=== PATIENT | male | born 1960 | race Two or more races ===

== ENCOUNTER 2021-04-18 19:35 | Emergency (ER) | payer SELFPAY ==
[~2021-04-18] VITALS: Ht 170.2 cm; Wt 65.8 kg
== END 2021-04-18 19:58 | disposition left against medical advice (07) ==
LOC: ER 19:35
DX: F10.920 Alcohol use, unspecified with intoxication, uncomplicated (principal); V49.9XXA Car occupant (driver) (passenger) injured in unspecified traffic accident, initial encounter; Y93.89 Activity, other specified; Y92.89 Other specified places as the place of occurrence of the external cause; Y99.8 Other external cause status

== ENCOUNTER 2023-05-28 04:36 | Inpatient (IN) | payer MEDICARE, OTHER ==
[~2023-05-28] VITALS: Ht 170.2 cm; Wt 61.0 kg
[2023-05-28] MEDS ORDERED: LISINOPRIL 10 MG TAB PO ONE (05:00)
[2023-05-28 06:25] LABS: Basophils # (auto) 0.1 10 ^3/uL (0-0.2); Eosinophils # (auto) 0.3 10 ^3/uL (0-0.8); Eosinophils % (auto) 3.2 % (0.0-7.0); Hematocrit 45.5 % (41.0-53.0); Hemoglobin 15.3 g/dL (13.5-17.5); Lymphocytes # (auto) 1.7 10 ^3/uL (0.4-5.4); Lymphocytes % (auto) 20.5 % (10.0-50.0); Mean Corpuscular Hemoglobin 32.2 pg (28.0-32.0); Mean Corpuscular Hgb Conc. 33.7 g/dL (32.0-36.0); Mean Corpuscular Volume 95.5 fL (80.0-100.0); Neutrophils # (auto) 5.3 10 ^3/uL (1.6-8.6); Neutrophils % (auto) 63.3 % (37.0-80.0); Nucleated Red Blood Cells % 0.1 %; Red Blood Cells 4.76 10^6/uL (4.5-5.90); Red Cell Distribution Width 14.7 % (11.8-14.3); White Blood Cell 8.4 10^3/uL (4.4-10.8)
[2023-05-28 06:47] LABS: Urine Bacteria NONE SEEN /hpf (None Seen); Urine Blood TRACE /uL (Negative); Urine Mucus FEW (None Seen); Urine Specific Gravity 1.022 (1.001-1.035); Urine Sperm PRESENT /hpf (None Seen); Urine WBC 3 /hpf (0 - 3)
[2023-05-28] MEDS ORDERED: DexAMETHasone SOD PHOS 10MG/1ML VIAL INJ IV ONE (07:00)
[2023-05-28] MEDS ORDERED: ALBUTEROL SULF 2.5 MG/0.5ML(0.5%) NEB SOLN NEB ONE (07:00)
[2023-05-28] MEDS ORDERED: ASPirin 325 MG TAB PO ONE (07:00)
[2023-05-28] MEDS ORDERED: IPRATROPIUM BROM 0.5 MG/2.5ML INH SOL NEB ONE (07:00)
[2023-05-28 07:10] LABS: Albumin 3.1 g/dL (3.4-5.0); Calcium 8.6 mg/dL (8.5-10.1); Potassium 3.7 mmol/L (3.5-5.1)
[2023-05-28 07:15] LABS: BUN/Creatinine Ratio 17.3 (10.0-20.0); Bilirubin, Total 0.5 mg/dL (0.2-1.0); Total Protein 6.6 g/dL (6.4-8.2)
[2023-05-28] MEDS ORDERED: LISI20TA56 PO (15:27)
[2023-05-28 17:15] VITALS: BP 151/106
[2023-05-28] MEDS: ALBUTEROL SULF 2.5 MG/0.5ML(0.5%) NEB SOLN NEB SCH ×2 (18:40→22:31)
[2023-05-28] MEDS: IPRATROPIUM BROM 0.5 MG/2.5ML INH SOL NEB SCH ×2 (18:40→22:31)
[2023-05-28] MEDS: METOPROLOL TARTRATE 50 MG TAB PO SCH (21:34)
[2023-05-28] MEDS: ATORVASTATIN 20 MG TAB PO SCH (21:34)
[2023-05-28] MEDS: MELATONIN 5 MG TAB PO SCH (21:36)
[2023-05-28] MEDS ORDERED: MELATONIN 5 MG TAB PO ONE (23:45)
[2023-05-29] MEDS: IPRATROPIUM BROM 0.5 MG/2.5ML INH SOL NEB SCH ×5 (00:15→22:44)
[2023-05-29] MEDS: ALBUTEROL SULF 2.5 MG/0.5ML(0.5%) NEB SOLN NEB SCH ×5 (00:15→22:45)
[2023-05-29] MEDS ORDERED: LORazepam 2MG/ML-1ML VIAL IV ONE (05:15)
[2023-05-29 06:36] LABS: Basophils # (auto) 0 10 ^3/uL (0-0.2); Basophils % (auto) 0.3 % (0.0-2.0); Eosinophils # (auto) 0 10 ^3/uL (0-0.8); Eosinophils % (auto) 0.2 % (0.0-7.0); Hematocrit 44.3 % (41.0-53.0); Hemoglobin 14.7 g/dL (13.5-17.5); Lymphocytes # (auto) 1.2 10 ^3/uL (0.4-5.4); Lymphocytes % (auto) 11.3 % (10.0-50.0); Mean Corpuscular Hemoglobin 31.7 pg (28.0-32.0); Mean Corpuscular Hgb Conc. 33.2 g/dL (32.0-36.0); Mean Corpuscular Volume 95.4 fL (80.0-100.0); Monocytes # (auto) 1.2 10 ^3/uL (0-1.3); Monocytes % (auto) 11.8 % (0.0-12.0); Neutrophils % (auto) 76.4 % (37.0-80.0); Nucleated Red Blood Cells % 0.1 %; Red Blood Cells 4.65 10^6/uL (4.5-5.90); Red Cell Distribution Width 14.8 % (11.8-14.3); White Blood Cell 10.4 10^3/uL (4.4-10.8)
[2023-05-29 06:39] LABS: Albumin 2.9 g/dL (3.4-5.0); Calcium 8.8 mg/dL (8.5-10.1); Potassium 4.1 mmol/L (3.5-5.1)
[2023-05-29 06:46] LABS: BUN/Creatinine Ratio 23.5 (10.0-20.0); Bilirubin, Total 0.6 mg/dL (0.2-1.0); Total Protein 6.3 g/dL (6.4-8.2)
[2023-05-29] MEDS: METOPROLOL TARTRATE 50 MG TAB PO SCH ×2 (11:00→21:31)
[2023-05-29] MEDS: ENOXAPARIN SOD 40 MG/0.4 ML SYRINGE SC SCH (11:01)
[2023-05-29] MEDS: FUROSEMIDE 20 MG/2 ML VIAL IV SCH (11:01)
[2023-05-29] MEDS: predniSONE 20 MG TAB PO SCH (11:01)
[2023-05-29] MEDS: NICOTINE 21MG/24 HR TOPICAL PATCH TD SCH (11:02)
[2023-05-29 12:55] VITALS: BP 119/94
[2023-05-29 14:47] VITALS: BP 119/94
[2023-05-29 17:00] VITALS: BP 124/97
[2023-05-29] MEDS: ATORVASTATIN 20 MG TAB PO SCH (21:31)
[2023-05-29] MEDS: MELATONIN 5 MG TAB PO SCH (21:31)
[2023-05-29 22:00] VITALS: BP 118/88
[2023-05-30 05:00] VITALS: BP 114/83
[2023-05-30] MEDS: ALBUTEROL SULF 2.5 MG/0.5ML(0.5%) NEB SOLN NEB SCH ×4 (05:53→23:10)
[2023-05-30] MEDS: IPRATROPIUM BROM 0.5 MG/2.5ML INH SOL NEB SCH ×4 (05:54→23:10)
[2023-05-30 08:42] VITALS: BP 113/85
[2023-05-30] MEDS: levoFLOXacin 500MG 100 ML IV SCH (08:52)
[2023-05-30] MEDS: ASPirin 81 mg TAB PO SCH (09:03)
[2023-05-30] MEDS: predniSONE 20 MG TAB PO SCH (09:03)
[2023-05-30] MEDS: METOPROLOL TARTRATE 50 MG TAB PO SCH ×2 (09:04→20:36)
[2023-05-30] MEDS: ENOXAPARIN SOD 40 MG/0.4 ML SYRINGE SC SCH (09:04)
[2023-05-30] MEDS: NICOTINE 21MG/24 HR TOPICAL PATCH TD SCH (09:05)
[2023-05-30] MEDS: FUROSEMIDE 20 MG/2 ML VIAL IV SCH (09:22)
[2023-05-30] MEDS ORDERED: metOLazone 5 MG TAB PO ONE (12:45)
[2023-05-30 12:58] VITALS: BP 115/89
[2023-05-30 13:43] LABS: INR 1.26 (0.9-1.15)
[2023-05-30] MEDS: LORazepam 0.5 MG TAB PO PRN ×2 (15:02→23:25)
[2023-05-30 17:00] VITALS: BP 108/65
[2023-05-30] MEDS: MELATONIN 5 MG TAB PO SCH (20:35)
[2023-05-30] MEDS: ATORVASTATIN 20 MG TAB PO SCH (20:35)
[2023-05-30 22:00] VITALS: BP 111/73
[2023-05-30] MEDS ORDERED: traMADol HCL 50 MG TAB PO PRN (22:15)
[2023-05-31] VITALS (10 sets, daily range): BP systolic 103–118; BP diastolic 68–88
[2023-05-31 05:53] LABS: Albumin 3.1 g/dL (3.4-5.0); BUN/Creatinine Ratio 37.7 (10.0-20.0); Calcium 8.5 mg/dL (8.5-10.1); Phosphorus 4.3 mg/dL (2.5-4.90); Potassium 3.9 mmol/L (3.5-5.1)
[2023-05-31] MEDS: IPRATROPIUM BROM 0.5 MG/2.5ML INH SOL NEB SCH ×3 (07:06→19:25)
[2023-05-31] MEDS: ALBUTEROL SULF 2.5 MG/0.5ML(0.5%) NEB SOLN NEB SCH ×3 (07:06→19:25)
[2023-05-31] MEDS ORDERED: fentaNYL CITRATE 100 MCG/2 ML VL ONE (10:50)
[2023-05-31] MEDS ORDERED: LIDOCAINE 2%HCL (LOCAL ANESTH.) INJ 20ML MDV ONE (10:50)
[2023-05-31] MEDS ORDERED: VERAPAMIL 2.5MG/ML INJ 2ML VIAL IV ONE (10:50)
[2023-05-31] MEDS ORDERED: MIDAZOLAM HCL 2MG/2ML 2ml VIAL (1mg/ml) ONE (10:50)
[2023-05-31] MEDS ORDERED: ANGIOMAX 250 MG VIAL IV ONE (10:50)
[2023-05-31] MEDS ORDERED: IODIXANOL 320MG/ML 100ML BTL IV ONE (10:51)
[2023-05-31] MEDS ORDERED: SODIUM CHL 0.9% 0 ML ONE (10:51)
[2023-05-31] MEDS ORDERED: HEPARIN SODIUM (PORCINE) 5000 UNITS/ML 1ML VIAL ONE (10:51)
[2023-05-31] MEDS ORDERED: metOLazone 5 MG TAB PO ONE (11:30)
[2023-05-31] MEDS: FUROSEMIDE 20 MG/2 ML VIAL IV SCH (12:47)
[2023-05-31] MEDS: levoFLOXacin 500MG 100 ML IV SCH (12:48)
[2023-05-31] MEDS: predniSONE 20 MG TAB PO SCH (12:48)
[2023-05-31] MEDS: ASPirin 81 mg TAB PO SCH (12:49)
[2023-05-31] MEDS: ENOXAPARIN SOD 40 MG/0.4 ML SYRINGE SC SCH (12:49)
[2023-05-31] MEDS: NICOTINE 21MG/24 HR TOPICAL PATCH TD SCH (12:50)
[2023-05-31] MEDS: METOPROLOL TARTRATE 50 MG TAB PO SCH ×2 (14:22→23:31)
[2023-05-31] MEDS: ATORVASTATIN 20 MG TAB PO SCH (21:54)
[2023-05-31] MEDS: CARVEDILOL 3.125 MG TAB PO SCH (21:54)
[2023-05-31] MEDS: MELATONIN 5 MG TAB PO SCH (23:30)
[2023-06-01] MEDS: IPRATROPIUM BROM 0.5 MG/2.5ML INH SOL NEB SCH ×3 (00:11→11:59)
[2023-06-01] MEDS: ALBUTEROL SULF 2.5 MG/0.5ML(0.5%) NEB SOLN NEB SCH ×3 (00:11→11:59)
[2023-06-01 05:00] VITALS: BP 106/69
[2023-06-01 09:13] VITALS: BP 110/76
[2023-06-01] MEDS: ENOXAPARIN SOD 40 MG/0.4 ML SYRINGE SC SCH (09:58)
[2023-06-01] MEDS: NICOTINE 21MG/24 HR TOPICAL PATCH TD SCH (09:58)
[2023-06-01] MEDS: levoFLOXacin 500MG 100 ML IV SCH (09:58)
[2023-06-01] MEDS: predniSONE 20 MG TAB PO SCH (09:59)
[2023-06-01] MEDS: ASPirin 81 mg TAB PO SCH (09:59)
[2023-06-01] MEDS ORDERED: EMPAGLIFLOZIN 10 MG TAB PO SCH (10:00)
[2023-06-01] MEDS ORDERED: SACUBITRIL-VALSARTAN 24mg/26mg TAB PO SCH (10:00)
[2023-06-01] MEDS: FUROSEMIDE 20 MG/2 ML VIAL IV SCH (10:09)
[2023-06-01] MEDS: CARVEDILOL 3.125 MG TAB PO SCH (10:10)
[2023-06-01 13:20] VITALS: BP 103/70
[2023-06-01 16:56] VITALS: BP 98/69
== END 2023-06-01 17:30 | DRG 286 ==
LOC: ER 04:36 → TELE 15:17 → TELE-CENTR 05-29 12:50
PROVIDERS: ADMIT Nurse Practitioner Family; ATTEND Family Medicine
PROC: 4A023N7 Measurement of Cardiac Sampling and Pressure, Left Heart, Percutaneous Approach (ICD-10-PCS; principal; 2023-05-31)
PROC: B211YZZ Fluoroscopy of Multiple Coronary Arteries using Other Contrast (ICD-10-PCS; 2023-05-31)
PROC: B215YZZ Fluoroscopy of Left Heart using Other Contrast (ICD-10-PCS; 2023-05-31)
DX: I11.0 Hypertensive heart disease with heart failure (principal); I50.43 Acute on chronic combined systolic (congestive) and diastolic (congestive) heart failure; J96.01 Acute respiratory failure with hypoxia; I16.1 Hypertensive emergency; I42.8 Other cardiomyopathies; Z20.822 Contact with and (suspected) exposure to COVID-19; J44.9 Chronic obstructive pulmonary disease, unspecified; I27.20 Pulmonary hypertension, unspecified; I25.10 Atherosclerotic heart disease of native coronary artery without angina pectoris; I49.3 Ventricular premature depolarization; Z85.038 Personal history of other malignant neoplasm of large intestine; Z91.199 Patient's noncompliance with other medical treatment and regimen due to unspecified reason; Z80.0 Family history of malignant neoplasm of digestive organs; Z79.899 Other long term (current) drug therapy; Z72.0 Tobacco use
CPT/HCPCS: 36415; 36600; 71045; 80053; 80069; 81001; 82805; 83880; 84484; 85025; 85379; 85610; 87426; 93005; 93306; 93458; 93970; 94640; 96374; 97163; 99152; G0378; J1100; J1956; J2250; Q9967

== ENCOUNTER 2023-07-15 19:07 | Emergency (ER) | payer MEDICARE ==
[~2023-07-15] VITALS: Ht 170.2 cm; Wt 64.0 kg
[~2023-07-15 19:07] MED LIST: LISI20TA56 PO
[2023-07-15 19:32] LABS: Hematocrit 41.9 % (41.0-53.0); Hemoglobin 14.2 g/dL (13.5-17.5); Mean Corpuscular Hemoglobin 31.2 pg (28.0-32.0); Mean Corpuscular Hgb Conc. 33.9 g/dL (32.0-36.0); Red Blood Cells 4.55 10^6/uL (4.5-5.90); Red Cell Distribution Width 14.8 % (11.8-14.3); White Blood Cell 7.7 10^3/uL (4.4-10.8)
[2023-07-15 19:33] LABS: Band Neutrophils % (manual) 0; Basophils % (manual) 0 (0.0-2.0); Blast Cells 0; Eosinophils % (manual) 0 (0-7); Metamyelocytes % 0; Myelocytes % 0; Promyelocytes % 0; Reactive Lymphocytes 0
[2023-07-15] MEDS ORDERED: ACETAMINOPHEN 325 MG TAB PO ONE (19:45)
[2023-07-15 19:46] LABS: Lymphocytes % (manual) 16 (10.0-50.0); Monocytes % (manual) 26 (0-12); Platelet Estimate Adequate
[2023-07-15 20:03] LABS: Alanine Aminotransferase 15 U/L (7-40); Albumin 3.8 g/dL (3.2-4.8); Alkaline Phosphatase 65 U/L (46-116); Anion Gap 6.7 (5-15); Aspartate Aminotransferase 17 U/L (13-40); BUN/Creatinine Ratio 13.1 (10.0-20.0); Blood Urea Nitrogen 13 mg/dL (9-23); Calcium 8.5 mg/dL (8.5-10.1); Carbon Dioxide 24.3 mmol/L (20-30); Chloride 104 mmol/L (98-107); Glucose 106 mg/dL (74-106); Potassium 3.9 mmol/L (3.5-5.1); Sodium 135 mmol/L (136-145)
[2023-07-15 20:04] LABS: Bilirubin, Total 0.4 mg/dL (0.2-1.0)
[2023-07-15 20:21] LABS: Urine Bacteria NONE SEEN /hpf (None Seen); Urine Blood Negative /uL (Negative); Urine Clarity Clear (Clear); Urine Color Yellow (Yellow); Urine Protein, UAD Negative (Negative); Urine Urobilinogen Normal (Negative); Urine WBC 1 /hpf (0 - 3)
[2023-07-15 20:31] LABS: Rapid Influenza A Negative (Negative); Rapid Influenza B Negative (Negative)
[2023-07-15 20:45] LABS: COVID19 ANTIGEN SOFIA FIA POSITIVE (NEGATIVE)
[2023-07-15] MEDS ORDERED: NIRM1TAB5 PO (23:19)
[2023-07-16 00:07] VITALS: BP 100/69; PULSE 89; RESP 18
[2023-07-16 00:12] VITALS: TEMP 98.9
[2023-07-16 00:18] VITALS: O2SAT 98
[2023-07-17] MEDS ORDERED: DAPA1TAB4 PO (07:15)
[2023-07-17] MEDS ORDERED: CARV3.1240 PO (07:15)
[2023-07-17] MEDS ORDERED: SACU1TAB PO (07:15)
== END 2023-07-16 00:28 | disposition home or self-care (01) ==
LOC: ER 19:07
DX: U07.1 COVID-19 (principal); R06.02 Shortness of breath; I11.0 Hypertensive heart disease with heart failure; I50.9 Heart failure, unspecified; F17.210 Nicotine dependence, cigarettes, uncomplicated; F10.90 Alcohol use, unspecified, uncomplicated; Z85.038 Personal history of other malignant neoplasm of large intestine; Z98.890 Other specified postprocedural states; Z79.899 Other long term (current) drug therapy; Y90.0 Blood alcohol level of less than 20 mg/100 ml
CPT/HCPCS: 36415; 71045; 80053; 81001; 83880; 84484; 85007; 85027; 87426; 87804; 93005

== ENCOUNTER 2023-07-16 16:21 | Inpatient (IN) | payer MEDICARE, MEDICAID ==
[~2023-07-16] VITALS: Ht 170.2 cm; Wt 65.8 kg
[~2023-07-16 16:21] MED LIST changes: +NIRM1TAB5 PO
[2023-07-16 17:09] VITALS: PULSE 94; RESP 26; O2SAT 95
[2023-07-16 17:29] LABS: INR 1.14 (0.9-1.15); Partial Thromboplastin Time 24.2 SEC (24.5-34.5); Prothrombin Time 11.9 sec (9.3-11.8)
[2023-07-16 18:18] LABS: Alanine Aminotransferase 17 U/L (7-40); Albumin 3.9 g/dL (3.2-4.8); Alkaline Phosphatase 67 U/L (46-116); Aspartate Aminotransferase 19 U/L (13-40); BUN/Creatinine Ratio 6.8 (10.0-20.0); Blood Urea Nitrogen 8 mg/dL (9-23); CRP High Sensitivity 0.76 mg/dL (<1.0); Calcium 8.8 mg/dL (8.5-10.1); Chloride 106 mmol/L (98-107); Glucose 95 mg/dL (74-106); Magnesium 2.2 mg/dL (1.6-2.6); Phosphorus 4.3 mg/dL (2.4-5.1); Potassium 4.6 mmol/L (3.5-5.1); Sodium 136 mmol/L (136-145); Total Protein 6.6 g/dL (5.7-8.2)
[2023-07-16 18:19] LABS: Bilirubin, Total 0.4 mg/dL (0.2-1.0); Hematocrit 47.2 % (41.0-53.0); Hemoglobin 15.8 g/dL (13.5-17.5); Mean Corpuscular Hemoglobin 31.6 pg (28.0-32.0); Mean Corpuscular Hgb Conc. 33.4 g/dL (32.0-36.0); Mean Corpuscular Volume 94.7 fL (80.0-100.0); Red Blood Cells 4.99 10^6/uL (4.5-5.90); Red Cell Distribution Width 15.2 % (11.8-14.3); White Blood Cell 7.4 10^3/uL (4.4-10.8)
[2023-07-16 18:26] LABS: Basophils % (manual) 0 (0.0-2.0); Blast Cells 0; Eosinophils % (manual) 0 (0-7); Metamyelocytes % 0; Myelocytes % 0; Promyelocytes % 0; Reactive Lymphocytes 0
[2023-07-16 18:45] LABS: Lactic Acid w/Reflex 2.3 mmol/L (0.4-2.0)
[2023-07-16] MEDS ORDERED: ENOXAPARIN SOD 40 MG/0.4 ML SYRINGE SC SCH (18:45)
[2023-07-16] MEDS ORDERED: DOCUSATE SOD 100 MG CAP PO PRN (18:45)
[2023-07-16] MEDS ORDERED: ONDANSETRON HCL 4 MG/2 ML VIAL IV PRN (18:45)
[2023-07-16] MEDS ORDERED: MORPHINE SULFATE INJ 2 MG/ml SYRG IV PRN (18:45)
[2023-07-16 19:14] LABS: Band Neutrophils % (manual) 4; Large Platelets FEW; Lymphocytes % (manual) 24 (10.0-50.0); Monocytes % (manual) 20 (0-12); Platelet Estimate Adequa
[2023-07-16] MEDS ORDERED: MIDAZOLAM HCL 2MG/2ML 2ml VIAL (1mg/ml) ONE (19:28)
[2023-07-16] MEDS ORDERED: MIDAZOLAM HCL 2MG/2ML 2ml VIAL (1mg/ml) IV ONE (19:30)
[2023-07-16] MEDS ORDERED: AMIODARONE BOLUS KIT 100 ML IV ONE ×2 (19:45)
[2023-07-16 19:47] LABS: Phosphorus 4.5 mg/dL (2.4-5.1)
[2023-07-16] MEDS ORDERED: AMIODARONE 450mg/250ml AE 250 ML IV SCH ×2 (20:00)
[2023-07-16 20:02] VITALS: PULSE 80; RESP 20; O2SAT 100
[2023-07-16] MEDS: AMIODARONE 450mg/250ml AE 250 ML IV SCH (20:39)
[2023-07-16] MEDS: ENOXAPARIN SOD 60 MG/0.6 ML SYRINGE SC SCH (22:24)
[2023-07-17] VITALS (9 sets, daily range): BP systolic 124; BP diastolic 68; PULSE 82–99; RESP 16–23; TEMP 99; O2SAT 96–100
[2023-07-17 04:06] LABS: COVID19 ANTIGEN SOFIA FIA POSITIVE (NEGATIVE)
[2023-07-17 06:27] LABS: Hematocrit 44.2 % (41.0-53.0); Hemoglobin 14.9 g/dL (13.5-17.5); Mean Corpuscular Hemoglobin 31.6 pg (28.0-32.0); Mean Corpuscular Hgb Conc. 33.7 g/dL (32.0-36.0); Mean Corpuscular Volume 93.8 fL (80.0-100.0); Red Blood Cells 4.71 10^6/uL (4.5-5.90); Red Cell Distribution Width 14.9 % (11.8-14.3); White Blood Cell 5.4 10^3/uL (4.4-10.8)
[2023-07-17 06:58] LABS: Alanine Aminotransferase 14 U/L (7-40); Albumin 3.6 g/dL (3.2-4.8); Alkaline Phosphatase 59 U/L (46-116); Anion Gap 6.4 (5-15); Aspartate Aminotransferase 20 U/L (13-40); Bilirubin, Total 0.4 mg/dL (0.2-1.0); Blood Urea Nitrogen 11 mg/dL (9-23); Calcium 8.2 mg/dL (8.7-10.4); Carbon Dioxide 23.6 mmol/L (20-30); Chloride 109 mmol/L (98-107); Glucose 105 mg/dL (74-106); Potassium 3.8 mmol/L (3.5-5.1); Sodium 139 mmol/L (136-145)
[2023-07-17 07:07] LABS: Basophils % (manual) 0 (0.0-2.0); Blast Cells 0; Metamyelocytes % 0; Myelocytes % 0; Promyelocytes % 0; Reactive Lymphocytes 0
[2023-07-17] MEDS ORDERED: CARV3.1240 PO (07:15)
[2023-07-17] MEDS ORDERED: DAPA1TAB4 PO (07:15)
[2023-07-17] MEDS ORDERED: SACU1TAB PO (07:15)
[2023-07-17] MEDS: cefTRIAXone 1GM/50ML D5W 50 ML IV SCH (08:52)
[2023-07-17 09:04] LABS: Band Neutrophils % (manual) 4; Eosinophils % (manual) 1 (0-7); Lymphocytes % (manual) 12 (10.0-50.0); Monocytes % (manual) 33 (0-12)
[2023-07-17 09:06] LABS: Platelet Estimate Decreased
[2023-07-17] MEDS: AZITHROMYCIN 500MG/ 250ML 250 ML IV SCH (10:40)
[2023-07-17] MEDS: ASPirin 81 mg TAB PO SCH (10:40)
[2023-07-17] MEDS: ENOXAPARIN SOD 60 MG/0.6 ML SYRINGE SC SCH ×2 (10:41→22:42)
[2023-07-17] MEDS ORDERED: ZINC SULFATE 220mg CAP or TAB PO ONE (11:00)
[2023-07-17] MEDS ORDERED: MULTIPLE VITAMIN TAB PO ONE (11:00)
[2023-07-17] MEDS ORDERED: DexAMETHasone SOD PHOS 10MG/1ML VIAL INJ IV ONE (11:00)
[2023-07-17] MEDS: ALBUTEROL SULF 2.5 MG/0.5ML(0.5%) NEB SOLN NEB SCH ×3 (14:35→22:54)
[2023-07-17] MEDS: IPRATROPIUM BROM 0.5 MG/2.5ML INH SOL NEB SCH ×3 (14:35→22:54)
[2023-07-17 14:42] LABS: Urine Bacteria NONE SEEN /hpf (None Seen); Urine Blood Negative /uL (Negative); Urine Clarity Clear (Clear); Urine Color Yellow (Yellow); Urine Mucus FEW (None Seen); Urine Protein, UAD TRACE (Negative); Urine Specific Gravity 1.036 (1.001-1.035); Urine Urobilinogen Normal (Negative); Urine WBC 1 /hpf (0 - 3); Urine pH 5.5 (5.0-8.0)
[2023-07-17 14:54] LABS: Amphetamine Screen, Urine Neg (NEGATIVE); Barbiturate Scree,Urine Neg (NEGATIVE); Benzodiazephine Screen, Urine Pos (NEGATIVE); Cannabinoid Screen, Urine Neg (NEGATIVE); Cocaine Screen, Urine Neg (NEGATIVE); Opiate Scree,Urine Neg (NEGATIVE); Phencyclidine Screen, Urine Neg (NEGATIVE)
[2023-07-17] MEDS: AMIODARONE 450mg/250ml AE 250 ML IV SCH (17:30)
[2023-07-17] MEDS: ASCORBIC ACID 500 MG TAB PO SCH (22:42)
[2023-07-17] MEDS: ATORVASTATIN 20 MG TAB PO SCH (22:42)
[2023-07-18] VITALS (13 sets, daily range): BP systolic 99–129; BP diastolic 55–87; PULSE 68–102; RESP 16–22; TEMP 97.4–98.5; O2SAT 94–100
[2023-07-18] MEDS: ALBUTEROL SULF 2.5 MG/0.5ML(0.5%) NEB SOLN NEB SCH ×2 (02:33→06:25)
[2023-07-18] MEDS: IPRATROPIUM BROM 0.5 MG/2.5ML INH SOL NEB SCH ×2 (02:33→06:25)
[2023-07-18] MEDS: AMIODARONE 450mg/250ml AE 250 ML IV SCH ×2 (07:21→23:00)
[2023-07-18] MEDS: ZINC SULFATE 220mg CAP or TAB PO SCH (08:17)
[2023-07-18] MEDS: ENOXAPARIN SOD 60 MG/0.6 ML SYRINGE SC SCH ×2 (08:18→21:35)
[2023-07-18] MEDS: ASPirin 81 mg TAB PO SCH (08:18)
[2023-07-18] MEDS: CHOLECALCIFEROL (VITD3) 2,000 UNIT CAP/TAB PO SCH (08:18)
[2023-07-18] MEDS: cefTRIAXone 1GM/50ML D5W 50 ML IV SCH (08:18)
[2023-07-18] MEDS: AZITHROMYCIN 500MG/ 250ML 250 ML IV SCH (08:18)
[2023-07-18] MEDS: ASCORBIC ACID 500 MG TAB PO SCH ×2 (08:18→21:35)
[2023-07-18] MEDS: MULTIPLE VITAMIN TAB PO SCH (08:18)
[2023-07-18] MEDS: DexAMETHasone SOD PHOS 10MG/1ML VIAL INJ IV SCH (08:19)
[2023-07-18] MEDS: ALBUTEROL SULF HFA 90MCG INH 200DOSE IN SCH ×2 (14:13→21:18)
[2023-07-18] MEDS: ATORVASTATIN 20 MG TAB PO SCH (21:35)
[2023-07-18] MEDS ORDERED: TEMAZEPAM 15 MG CAP PO ONE (23:00)
[2023-07-19] VITALS (13 sets, daily range): BP systolic 102–144; BP diastolic 56–98; PULSE 64–86; RESP 14–20; TEMP 97.4–97.6; O2SAT 97–99
[2023-07-19] MEDS: ALBUTEROL SULF HFA 90MCG INH 200DOSE IN SCH ×3 (06:19→19:43)
[2023-07-19] MEDS: MULTIPLE VITAMIN TAB PO SCH (10:57)
[2023-07-19] MEDS: cefTRIAXone 1GM/50ML D5W 50 ML IV SCH (10:57)
[2023-07-19] MEDS: DexAMETHasone SOD PHOS 10MG/1ML VIAL INJ IV SCH (10:57)
[2023-07-19] MEDS: ZINC SULFATE 220mg CAP or TAB PO SCH (10:57)
[2023-07-19] MEDS: ASPirin 81 mg TAB PO SCH (10:57)
[2023-07-19] MEDS: AZITHROMYCIN 500MG/ 250ML 250 ML IV SCH (10:57)
[2023-07-19] MEDS: CHOLECALCIFEROL (VITD3) 2,000 UNIT CAP/TAB PO SCH (10:58)
[2023-07-19] MEDS: ENOXAPARIN SOD 60 MG/0.6 ML SYRINGE SC SCH ×2 (10:58→21:34)
[2023-07-19] MEDS: ASCORBIC ACID 500 MG TAB PO SCH ×2 (10:58→21:34)
[2023-07-19] MEDS: ATORVASTATIN 20 MG TAB PO SCH (21:34)
[2023-07-20] VITALS (7 sets, daily range): BP systolic 118–142; BP diastolic 66–88; PULSE 62–78; RESP 18–19; TEMP 97.5–97.7; O2SAT 97–100
[2023-07-20] MEDS: ALBUTEROL SULF HFA 90MCG INH 200DOSE IN SCH (06:58)
[2023-07-20 07:40] LABS: Basophils # (auto) 0 10 ^3/uL (0-0.2); Basophils % (auto) 0.1 % (0.0-2.0); Eosinophils # (auto) 0 10 ^3/uL (0-0.8); Hematocrit 43.4 % (41.0-53.0); Hemoglobin 14.4 g/dL (13.5-17.5); Lymphocytes # (auto) 1.2 10 ^3/uL (0.4-5.4); Lymphocytes % (auto) 13.2 % (10.0-50.0); Mean Corpuscular Hemoglobin 31.1 pg (28.0-32.0); Mean Corpuscular Hgb Conc. 33.3 g/dL (32.0-36.0); Mean Corpuscular Volume 93.6 fL (80.0-100.0); Monocytes # (auto) 1.2 10 ^3/uL (0-1.3); Monocytes % (auto) 13.3 % (0.0-12.0); Neutrophils # (auto) 6.5 10 ^3/uL (1.6-8.6); Neutrophils % (auto) 73.4 % (37.0-80.0); Red Blood Cells 4.63 10^6/uL (4.5-5.90); Red Cell Distribution Width 15.1 % (11.8-14.3); White Blood Cell 8.8 10^3/uL (4.4-10.8)
[2023-07-20 07:59] LABS: Alanine Aminotransferase 19 U/L (7-40); Albumin 3.7 g/dL (3.2-4.8); Alkaline Phosphatase 49 U/L (46-116); Anion Gap 6.1 (5-15); Aspartate Aminotransferase 14 U/L (13-40); BUN/Creatinine Ratio 17.3 (10.0-20.0); Bilirubin, Total 0.5 mg/dL (0.2-1.0); Blood Urea Nitrogen 14 mg/dL (9-23); Calcium 8.5 mg/dL (8.5-10.1); Carbon Dioxide 24.9 mmol/L (20-30); Chloride 107 mmol/L (98-107); Glucose 114 mg/dL (74-106); Potassium 3.9 mmol/L (3.5-5.1); Sodium 138 mmol/L (136-145)
[2023-07-20] MEDS: cefTRIAXone 1GM/50ML D5W 50 ML IV SCH (10:02)
[2023-07-20] MEDS: DexAMETHasone SOD PHOS 10MG/1ML VIAL INJ IV SCH (10:02)
[2023-07-20] MEDS: AZITHROMYCIN 500MG/ 250ML 250 ML IV SCH (10:02)
[2023-07-20] MEDS: ZINC SULFATE 220mg CAP or TAB PO SCH (10:03)
[2023-07-20] MEDS: ENOXAPARIN SOD 60 MG/0.6 ML SYRINGE SC SCH (10:03)
[2023-07-20] MEDS: ASPirin 81 mg TAB PO SCH (10:03)
[2023-07-20] MEDS: CHOLECALCIFEROL (VITD3) 2,000 UNIT CAP/TAB PO SCH (10:03)
[2023-07-20] MEDS: ASCORBIC ACID 500 MG TAB PO SCH (10:03)
[2023-07-20] MEDS: MULTIPLE VITAMIN TAB PO SCH (10:03)
[2023-07-20] MEDS ORDERED: ZINC220C10 PO (10:31)
[2023-07-20] MEDS ORDERED: AZIT500T66 PO (10:31)
[2023-07-20] MEDS ORDERED: CHOL20007 PO (10:31)
[2023-07-20] MEDS ORDERED: ASCO500C49 PO (10:31)
[2023-07-20] MEDS ORDERED: METH4PAK PO (10:31)
== END 2023-07-20 14:44 | disposition home or self-care (01) | DRG 177 ==
LOC: ER 16:21 → TELE 18:41 → TELE-EAST 07-17 23:05
PROVIDERS: ADMIT Nurse Practitioner Family; ATTEND Family Medicine
PROC: 05HA33Z Insertion of Infusion Device into Left Brachial Vein, Percutaneous Approach (ICD-10-PCS; principal; 2023-07-16)
PROC: B54NZZA Ultrasonography of Left Upper Extremity Veins, Guidance (ICD-10-PCS; 2023-07-16)
DX: U07.1 COVID-19 (principal); I21.A1 Myocardial infarction type 2; I50.43 Acute on chronic combined systolic (congestive) and diastolic (congestive) heart failure; J12.82 Pneumonia due to coronavirus disease 2019; J96.01 Acute respiratory failure with hypoxia; I47.1 Supraventricular tachycardia; I42.8 Other cardiomyopathies; I11.0 Hypertensive heart disease with heart failure; I25.10 Atherosclerotic heart disease of native coronary artery without angina pectoris; R00.1 Bradycardia, unspecified; I95.9 Hypotension, unspecified; F17.210 Nicotine dependence, cigarettes, uncomplicated; Z85.048 Personal history of other malignant neoplasm of rectum, rectosigmoid junction, and anus; Z80.0 Family history of malignant neoplasm of digestive organs
CPT/HCPCS: 36415; 70450; 71045; 80053; 80307; 81001; 82306; 83605; 83615; 83735; 83880; 84100; 84443; 84484; 85007; 85025; 85027; 85379; 85610; 85730; 86141; 86710; 87040; 87081; 87426; 87804; 93005; 94640; 96365; 96367; G0378; J0696; J1100; J2250

== ENCOUNTER 2023-09-18 15:48 | Inpatient (IN) | payer MEDICARE, MEDICAID ==
[~2023-09-18] VITALS: Ht 170.2 cm; Wt 65.5 kg
[~2023-09-18 15:48] MED LIST changes: +ASCO500C49 PO; +AZIT500T66 PO; +CARV3.1240 PO; +CHOL20007 PO; +DAPA1TAB4 PO; +METH4PAK PO; +SACU1TAB PO; +ZINC220C10 PO
[2023-09-18 16:00] VITALS: PULSE 207; RESP 20; O2SAT 98
[2023-09-18] MEDS ORDERED: PROPOFOL 100 ML IV ONE (16:06)
[2023-09-18] MEDS ORDERED: PROPOFOL 10 MG/ML 20 ML IV ONE (16:15)
[2023-09-18 16:42] LABS: Basophils # (auto) 0.1 10 ^3/uL (0-0.2); Basophils % (auto) 1.1 % (0.0-2.0); Eosinophils # (auto) 0.2 10 ^3/uL (0-0.8); Eosinophils % (auto) 2.7 % (0.0-7.0); Hematocrit 51.5 % (41.0-53.0); Hemoglobin 16.5 g/dL (13.5-17.5); Lymphocytes # (auto) 1.7 10 ^3/uL (0.4-5.4); Lymphocytes % (auto) 22.7 % (10.0-50.0); Mean Corpuscular Hemoglobin 31.9 pg (28.0-32.0); Mean Corpuscular Hgb Conc. 32.1 g/dL (32.0-36.0); Mean Corpuscular Volume 99.5 fL (80.0-100.0); Monocytes % (auto) 12.8 % (0.0-12.0); Neutrophils # (auto) 4.5 10 ^3/uL (1.6-8.6); Neutrophils % (auto) 60.7 % (37.0-80.0); Nucleated Red Blood Cells % 0.1 %; Red Blood Cells 5.18 10^6/uL (4.5-5.90); Red Cell Distribution Width 16.9 % (11.8-14.3); White Blood Cell 7.4 10^3/uL (4.4-10.8)
[2023-09-18] MEDS ORDERED: SODIUM CHLORIDE 0.9% 500 ML IV ONE (16:45)
[2023-09-18 17:00] LABS: Alanine Aminotransferase 19 U/L (7-40); Albumin 4.1 g/dL (3.2-4.8); Alkaline Phosphatase 66 U/L (46-116); Anion Gap 13 (5-15); Aspartate Aminotransferase 27 U/L (13-40); BUN/Creatinine Ratio 9.1 (10.0-20.0); Bilirubin, Total 0.9 mg/dL (0.2-1.0); Blood Urea Nitrogen 12 mg/dL (9-23); Calcium 9.1 mg/dL (8.7-10.4); Carbon Dioxide 20 mmol/L (20-30); Chloride 109 mmol/L (98-107); Glucose 94 mg/dL (74-106); INR 1.15 (0.9-1.15); Partial Thromboplastin Time 27.1 SEC (24.5-34.5); Sodium 142 mmol/L (136-145); Total Protein 6.3 g/dL (5.7-8.2)
[2023-09-18] MEDS ORDERED: MORPHINE SULFATE INJ 2 MG/ml SYRG IV PRN (17:30)
[2023-09-18] MEDS ORDERED: NITROGLYCERIN 0.4 MG SL TAB SL PRN (17:30)
[2023-09-18] MEDS ORDERED: ASPirin 325 MG TAB PO ONE (17:30)
[2023-09-18] MEDS ORDERED: LORazepam 2MG/ML-1ML VIAL IV PRN (18:00)
[2023-09-18] MEDS ORDERED: ALBUTEROL MEDNEB 2.5 mg/3ml NEB NEB PRN (18:15)
[2023-09-18 19:15] VITALS: BP 119/78; PULSE 90; RESP 20; O2SAT 98
[2023-09-18 19:30] VITALS: PULSE 76; RESP 20; O2SAT 99
[2023-09-18] MEDS: CARVEDILOL 3.125 MG TAB PO SCH (22:00)
[2023-09-19] VITALS (7 sets, daily range): BP systolic 117–120; BP diastolic 70–82; PULSE 65–85; RESP 10–20; TEMP 97.7–98.3; O2SAT 96–98
[2023-09-19] MEDS: ASCORBIC ACID 500 MG TAB PO SCH ×3 (01:13→21:46)
[2023-09-19] MEDS: SACUBITRIL-VALSARTAN 24mg/26mg TAB PO SCH ×3 (01:13→21:46)
[2023-09-19 07:13] LABS: Basophils # (auto) 0.1 10 ^3/uL (0-0.2); Basophils % (auto) 1.5 % (0.0-2.0); Eosinophils # (auto) 0.3 10 ^3/uL (0-0.8); Eosinophils % (auto) 3.9 % (0.0-7.0); Hematocrit 47.3 % (41.0-53.0); Hemoglobin 15.8 g/dL (13.5-17.5); Lymphocytes # (auto) 1.6 10 ^3/uL (0.4-5.4); Lymphocytes % (auto) 23.8 % (10.0-50.0); Mean Corpuscular Hemoglobin 32.1 pg (28.0-32.0); Mean Corpuscular Hgb Conc. 33.5 g/dL (32.0-36.0); Mean Corpuscular Volume 95.8 fL (80.0-100.0); Monocytes % (auto) 15.5 % (0.0-12.0); Neutrophils # (auto) 3.6 10 ^3/uL (1.6-8.6); Neutrophils % (auto) 55.3 % (37.0-80.0); Nucleated Red Blood Cells % 0.2 %; Red Blood Cells 4.94 10^6/uL (4.5-5.90); Red Cell Distribution Width 16.1 % (11.8-14.3); White Blood Cell 6.5 10^3/uL (4.4-10.8)
[2023-09-19] MEDS ORDERED: LISINOPRIL 20 MG TAB PO SCH (10:00)
[2023-09-19] MEDS: ENOXAPARIN SOD 40 MG/0.4 ML SYRINGE SC SCH (10:00)
[2023-09-19] MEDS: CHOLECALCIFEROL (VITD3) 2,000 UNIT CAP/TAB PO SCH (10:00)
[2023-09-19] MEDS: ZINC SULFATE 220mg CAP or TAB PO SCH (10:42)
[2023-09-19] MEDS: CARVEDILOL 3.125 MG TAB PO SCH ×2 (10:44→21:46)
[2023-09-19] MEDS: ASPirin 81 mg TAB PO SCH (10:44)
[2023-09-19] MEDS: FOLIC ACID 1 MG, MULTIPLE VITAMIN 10 ML, MAGNESIUM SULF SDV 50% 8 MEQ, THIAMINE INJ 100... INJ SCH ×5 (12:57)
[2023-09-19] MEDS ORDERED: FUROSEMIDE 20 MG/2 ML VIAL IV ONE (16:30)
[2023-09-20] VITALS (8 sets, daily range): BP systolic 124–131; BP diastolic 71–89; PULSE 66–80; RESP 16–20; TEMP 97.5–98.1; O2SAT 95–99
[2023-09-20 06:48] LABS: Chloride 106 mmol/L (98-107); Potassium 3.7 mmol/L (3.5-5.1); Sodium 140 mmol/L (136-145)
[2023-09-20 06:49] LABS: Anion Gap 6 (5-15); Calcium 8.4 mg/dL (8.7-10.4); Carbon Dioxide 28 mmol/L (20-30)
[2023-09-20 06:54] LABS: BUN/Creatinine Ratio 12.2 (10.0-20.0); Blood Urea Nitrogen 11 mg/dL (9-23); Glucose 111 mg/dL (74-106)
[2023-09-20 06:55] LABS: Magnesium 1.9 mg/dL (1.6-2.6)
[2023-09-20 07:07] LABS: Basophils # (auto) 0.1 10 ^3/uL (0-0.2); Basophils % (auto) 1.5 % (0.0-2.0); Eosinophils # (auto) 0.3 10 ^3/uL (0-0.8); Eosinophils % (auto) 4.9 % (0.0-7.0); Hematocrit 46.2 % (41.0-53.0); Hemoglobin 15.6 g/dL (13.5-17.5); Lymphocytes # (auto) 1.5 10 ^3/uL (0.4-5.4); Mean Corpuscular Hemoglobin 32.3 pg (28.0-32.0); Mean Corpuscular Hgb Conc. 33.6 g/dL (32.0-36.0); Mean Corpuscular Volume 96.2 fL (80.0-100.0); Monocytes # (auto) 0.9 10 ^3/uL (0-1.3); Monocytes % (auto) 15.9 % (0.0-12.0); Neutrophils # (auto) 3.1 10 ^3/uL (1.6-8.6); Neutrophils % (auto) 52.7 % (37.0-80.0); Nucleated Red Blood Cells % 0.1 %; Red Blood Cells 4.81 10^6/uL (4.5-5.90); White Blood Cell 5.9 10^3/uL (4.4-10.8)
[2023-09-20] MEDS: ENOXAPARIN SOD 40 MG/0.4 ML SYRINGE SC SCH (10:00)
[2023-09-20] MEDS: CHOLECALCIFEROL (VITD3) 2,000 UNIT CAP/TAB PO SCH (11:08)
[2023-09-20] MEDS: ASCORBIC ACID 500 MG TAB PO SCH ×2 (11:08→21:22)
[2023-09-20] MEDS: ASPirin 81 mg TAB PO SCH (11:08)
[2023-09-20] MEDS: CARVEDILOL 3.125 MG TAB PO SCH ×2 (11:09→21:23)
[2023-09-20] MEDS: ZINC SULFATE 220mg CAP or TAB PO SCH (11:16)
[2023-09-20] MEDS: SACUBITRIL-VALSARTAN 24mg/26mg TAB PO SCH ×2 (11:16→21:22)
[2023-09-20] MEDS: FUROSEMIDE 20 MG/2 ML VIAL IV SCH (11:17)
[2023-09-20 11:32] LABS: Urine Bacteria NONE SEEN /hpf (None Seen); Urine Blood Negative /uL (Negative); Urine Clarity Clear (Clear); Urine Color Yellow (Yellow); Urine Protein, UAD Negative (Negative); Urine Specific Gravity 1.026 (1.001-1.035); Urine Urobilinogen Normal (Negative); Urine WBC 2 /hpf (0 - 3); Urine pH 5.5 (5.0-8.0)
[2023-09-20 11:37] LABS: Amphetamine Screen, Urine Neg (NEGATIVE); Barbiturate Scree,Urine Neg (NEGATIVE); Benzodiazephine Screen, Urine Neg (NEGATIVE); Cannabinoid Screen, Urine Neg (NEGATIVE); Cocaine Screen, Urine Neg (NEGATIVE); Opiate Scree,Urine Neg (NEGATIVE); Phencyclidine Screen, Urine Neg (NEGATIVE)
[2023-09-20] MEDS: FOLIC ACID 1 MG, MULTIPLE VITAMIN 10 ML, MAGNESIUM SULF SDV 50% 8 MEQ, THIAMINE INJ 100... INJ SCH ×5 (15:34)
[2023-09-20] MEDS: SODIUM CHLORIDE 0.9% 1,000 ML IV SCH (23:45)
[2023-09-21] VITALS (10 sets, daily range): BP systolic 142–169; BP diastolic 81–109; PULSE 61–87; RESP 11–18; TEMP 97.8–98.1; O2SAT 96–98
[2023-09-21 05:50] LABS: Anion Gap 6 (5-15); Carbon Dioxide 27 mmol/L (20-30); Chloride 108 mmol/L (98-107); Potassium 3.8 mmol/L (3.5-5.1); Sodium 141 mmol/L (136-145)
[2023-09-21 05:51] LABS: Calcium 8.5 mg/dL (8.7-10.4)
[2023-09-21 05:56] LABS: BUN/Creatinine Ratio 12.9 (10.0-20.0); Blood Urea Nitrogen 12 mg/dL (9-23); Glucose 97 mg/dL (74-106)
[2023-09-21 06:03] LABS: INR 1.09 (0.9-1.15); Partial Thromboplastin Time 26.9 SEC (24.5-34.5); Prothrombin Time 11.4 sec (9.3-11.8)
[2023-09-21] MEDS ORDERED: IODIXANOL 320MG/ML 100ML BTL IV ONE ×2 (08:04→08:53)
[2023-09-21] MEDS ORDERED: fentaNYL CITRATE 100 MCG/2 ML VL ONE (08:52)
[2023-09-21] MEDS ORDERED: MIDAZOLAM HCL 2MG/2ML 2ml VIAL (1mg/ml) ONE (08:53)
[2023-09-21] MEDS ORDERED: VANCOMYCIN HCL 1000 MG VL ONE (08:56)
[2023-09-21] MEDS ORDERED: VANCOMYCIN 1GM/250ML 250 ML IV ONE (08:56)
[2023-09-21] MEDS ORDERED: ceFAZolin 1GM VL ONE (09:00)
[2023-09-21] MEDS ORDERED: LIDOCAINE 2%HCL (LOCAL ANESTH.) INJ 20ML MDV ONE (09:10)
[2023-09-21] MEDS ORDERED: GELATIN 1 SPONGE SIZE 50 TOP ONE (09:42)
[2023-09-21] MEDS: ZINC SULFATE 220mg CAP or TAB PO SCH (10:00)
[2023-09-21] MEDS: SACUBITRIL-VALSARTAN 24mg/26mg TAB PO SCH ×2 (10:00→21:40)
[2023-09-21] MEDS: ASCORBIC ACID 500 MG TAB PO SCH ×2 (10:00→21:40)
[2023-09-21] MEDS: FUROSEMIDE 20 MG/2 ML VIAL IV SCH (10:00)
[2023-09-21] MEDS: ASPirin 81 mg TAB PO SCH (10:00)
[2023-09-21] MEDS: ENOXAPARIN SOD 40 MG/0.4 ML SYRINGE SC SCH (10:00)
[2023-09-21] MEDS: CARVEDILOL 3.125 MG TAB PO SCH ×2 (10:00→21:40)
[2023-09-21] MEDS: CHOLECALCIFEROL (VITD3) 2,000 UNIT CAP/TAB PO SCH (10:00)
[2023-09-21] MEDS: SODIUM CHLORIDE 0.9% 1,000 ML IV SCH (11:05)
[2023-09-21] MEDS: ACETAMINOPHEN 325 MG TAB PO PRN ×2 (12:18→21:39)
[2023-09-21] MEDS: FOLIC ACID 1 MG, MULTIPLE VITAMIN 10 ML, MAGNESIUM SULF SDV 50% 8 MEQ, THIAMINE INJ 100... INJ SCH ×5 (12:31)
[2023-09-21] MEDS ORDERED: VANCOMYCIN 1GM/250ML 250 ML IV SCH ×2 (14:00→22:00)
[2023-09-21] MEDS: traMADol HCL 50 MG TAB PO PRN ×2 (17:03→23:01)
[2023-09-21] MEDS: VANCOMYCIN 1GM/250ML 250 ML IV SCH (21:33)
[2023-09-21] MEDS: DOXYCYCLINE 100 MG TAB/CAP PO SCH (21:39)
[2023-09-22] MEDS: SODIUM CHLORIDE 0.9% 1,000 ML IV SCH (00:51)
[2023-09-22 05:00] VITALS: BP 148/90; PULSE 81; RESP 20; TEMP 97.7; O2SAT 96
[2023-09-22] MEDS: traMADol HCL 50 MG TAB PO PRN (06:07)
[2023-09-22 08:00] VITALS: BP 157/88; PULSE 72; PULSE 75; RESP 20; TEMP 99.1; O2SAT 95
[2023-09-22 09:00] VITALS: BP 157/98; PULSE 72; RESP 20; TEMP 99.1; O2SAT 95
[2023-09-22] MEDS: ENOXAPARIN SOD 40 MG/0.4 ML SYRINGE SC SCH (10:00)
[2023-09-22] MEDS: SACUBITRIL-VALSARTAN 24mg/26mg TAB PO SCH (10:32)
[2023-09-22] MEDS: DOXYCYCLINE 100 MG TAB/CAP PO SCH (10:32)
[2023-09-22] MEDS: ASCORBIC ACID 500 MG TAB PO SCH (10:32)
[2023-09-22] MEDS: CHOLECALCIFEROL (VITD3) 2,000 UNIT CAP/TAB PO SCH (10:32)
[2023-09-22] MEDS: CARVEDILOL 3.125 MG TAB PO SCH (10:32)
[2023-09-22] MEDS: ZINC SULFATE 220mg CAP or TAB PO SCH (10:32)
[2023-09-22] MEDS: ASPirin 81 mg TAB PO SCH (10:32)
[2023-09-22] MEDS: FUROSEMIDE 20 MG/2 ML VIAL IV SCH (10:32)
[2023-09-22] MEDS: VANCOMYCIN 1GM/250ML 250 ML IV SCH (10:35)
[2023-09-22] MEDS ORDERED: DOXY-286 PO ×2 (11:23)
[2023-09-22] MEDS: FOLIC ACID 1 MG, MULTIPLE VITAMIN 10 ML, MAGNESIUM SULF SDV 50% 8 MEQ, THIAMINE INJ 100... INJ SCH ×5 (12:24)
[2023-09-22 12:28] VITALS: BP 147/91; PULSE 70; RESP 20; TEMP 99; O2SAT 99
[2023-09-22 12:38] VITALS: BP 147/91; PULSE 70; RESP 20; TEMP 99; O2SAT 95
== END 2023-09-22 13:28 | disposition home or self-care (01) | DRG 276 ==
LOC: ER 15:48 → TELE 17:31 → TELE-WESTW 09-19 09:38
PROVIDERS: ADMIT Nurse Practitioner Family; ATTEND Internal Medicine
PROC: 0JH608Z Insertion of Defibrillator Generator into Chest Subcutaneous Tissue and Fascia, Open Approach (ICD-10-PCS; principal; 2023-09-21)
PROC: 02HK3KZ Insertion of Defibrillator Lead into Right Ventricle, Percutaneous Approach (ICD-10-PCS; 2023-09-21)
PROC: B517YZA Fluoroscopy of Left Subclavian Vein using Other Contrast, Guidance (ICD-10-PCS; 2023-09-21)
DX: I47.19 Other supraventricular tachycardia (principal); I21.A1 Myocardial infarction type 2; I50.21 Acute systolic (congestive) heart failure; I13.0 Hypertensive heart and chronic kidney disease with heart failure and stage 1 through stage 4 chronic kidney disease, or unspecified chronic kidney disease; I42.8 Other cardiomyopathies; F17.210 Nicotine dependence, cigarettes, uncomplicated; H53.8 Other visual disturbances; I25.10 Atherosclerotic heart disease of native coronary artery without angina pectoris; F10.10 Alcohol abuse, uncomplicated; N18.9 Chronic kidney disease, unspecified; Z86.16 Personal history of COVID-19; Z80.0 Family history of malignant neoplasm of digestive organs; Z85.038 Personal history of other malignant neoplasm of large intestine; Z95.5 Presence of coronary angioplasty implant and graft
CPT/HCPCS: 33249; 36415; 71045; 75820; 80048; 80053; 80307; 81001; 83735; 83880; 84443; 84484; 85025; 85610; 85730; 86850; 86900; 86901; 92960; 93005; 96374; 99152; 99153; G0378; J0690; J2250; J2704; Q9967

== ENCOUNTER 2023-09-24 08:55 | Emergency (ER) | payer MEDICARE, MEDICAID ==
[~2023-09-24] VITALS: Ht 170.2 cm; Wt 63.4 kg
[~2023-09-24 08:55] MED LIST changes: -AZIT500T66 PO; +DOXY-286 PO; -NIRM1TAB5 PO
[2023-09-24 10:04] VITALS: BP 143/83; PULSE 70; RESP 18; TEMP 97.9; O2SAT 98
== END 2023-09-24 10:45 | disposition home or self-care (01) ==
LOC: ER 08:55
DX: T81.89XD Other complications of procedures, not elsewhere classified, subsequent encounter (principal); I11.0 Hypertensive heart disease with heart failure; I50.9 Heart failure, unspecified; F17.210 Nicotine dependence, cigarettes, uncomplicated; Z95.0 Presence of cardiac pacemaker; Z79.2 Long term (current) use of antibiotics; Z79.899 Other long term (current) drug therapy

== ENCOUNTER 2023-09-30 16:29 | Inpatient (IN) | payer MEDICARE, MEDICAID ==
[~2023-09-30] VITALS: Ht 170.2 cm; Wt 64.9 kg
[2023-09-30] MEDS ORDERED: PROPOFOL 10 MG/ML 20 ML IV ONE (17:00)
[2023-09-30 17:17] LABS: Basophils # (auto) 0.1 10 ^3/uL (0-0.2); Basophils % (auto) 1.2 % (0.0-2.0); Eosinophils # (auto) 0.1 10 ^3/uL (0-0.8); Eosinophils % (auto) 1.4 % (0.0-7.0); Hematocrit 42.8 % (41.0-53.0); Hemoglobin 14.3 g/dL (13.5-17.5); Lymphocytes # (auto) 1.8 10 ^3/uL (0.4-5.4); Lymphocytes % (auto) 17.4 % (10.0-50.0); Mean Corpuscular Hemoglobin 31.9 pg (28.0-32.0); Mean Corpuscular Hgb Conc. 33.4 g/dL (32.0-36.0); Mean Corpuscular Volume 95.3 fL (80.0-100.0); Monocytes % (auto) 9.5 % (0.0-12.0); Neutrophils # (auto) 7.2 10 ^3/uL (1.6-8.6); Neutrophils % (auto) 70.5 % (37.0-80.0); Red Blood Cells 4.49 10^6/uL (4.5-5.90); Red Cell Distribution Width 15.1 % (11.8-14.3); White Blood Cell 10.3 10^3/uL (4.4-10.8)
[2023-09-30] MEDS ORDERED: METOPROLOL TARTRATE 1MG/1ML-5ML VIAL IV ONE (17:30)
[2023-09-30 17:40] LABS: Alanine Aminotransferase 27 U/L (7-40); Alkaline Phosphatase 74 U/L (46-116); Anion Gap 7 (5-15); Aspartate Aminotransferase 24 U/L (13-40); Blood Urea Nitrogen 14 mg/dL (9-23); Carbon Dioxide 28 mmol/L (20-30); Chloride 106 mmol/L (98-107); Glucose 147 mg/dL (74-106); Potassium 3.6 mmol/L (3.5-5.1); Sodium 141 mmol/L (136-145)
[2023-09-30 17:41] LABS: Bilirubin, Total 0.6 mg/dL (0.2-1.0); Total Protein 6.1 g/dL (5.7-8.2)
[2023-09-30 17:55] LABS: INR 1.09 (0.9-1.15); Partial Thromboplastin Time 28.5 SEC (24.5-34.5); Prothrombin Time 11.6 sec (9.3-11.8)
[2023-09-30 18:23] VITALS: PULSE 89; RESP 20; O2SAT 97
[2023-09-30 19:30] VITALS: PULSE 73; RESP 18; O2SAT 99
[2023-09-30 20:35] LABS: Urine Bacteria NONE SEEN /hpf (None Seen); Urine Blood Negative /uL (Negative); Urine Clarity Clear (Clear); Urine Color Colorless (Yellow); Urine Protein, UAD Negative (Negative); Urine Specific Gravity 1.008 (1.001-1.035); Urine Urobilinogen Normal (Negative); Urine WBC <1 /hpf (0 - 3); Urine pH 5.5 (5.0-8.0)
[2023-09-30] MEDS ORDERED: HYDROcodone-ACET 5/325MG TAB PO PRN (21:00)
[2023-09-30] MEDS ORDERED: DOCUSATE SOD 100 MG CAP PO PRN (21:00)
[2023-09-30] MEDS ORDERED: ACETAMINOPHEN 325 MG TAB PO PRN (21:00)
[2023-09-30] MEDS ORDERED: ONDANSETRON HCL 4 MG/2 ML VIAL IV PRN (21:00)
[2023-09-30] MEDS: SODIUM CHLOR 0.9% PF (SALINE LOCK) 10ML VIAL/SYR IV SCH ×2 (22:12→23:37)
[2023-09-30] MEDS: CARVEDILOL 3.125 MG TAB PO SCH (22:34)
[2023-09-30] MEDS ORDERED: MORPHINE SULFATE INJ 2 MG/ml SYRG IV PRN (23:45)
[2023-09-30] MEDS ORDERED: NITROGLYCERIN 0.4 MG SL TAB SL PRN (23:45)
[2023-10-01 05:48] LABS: Basophils # (auto) 0.1 10 ^3/uL (0-0.2); Basophils % (auto) 1.5 % (0.0-2.0); Eosinophils # (auto) 0.3 10 ^3/uL (0-0.8); Eosinophils % (auto) 3.9 % (0.0-7.0); Hematocrit 41.1 % (41.0-53.0); Hemoglobin 13.9 g/dL (13.5-17.5); Lymphocytes # (auto) 1.5 10 ^3/uL (0.4-5.4); Lymphocytes % (auto) 21.7 % (10.0-50.0); Mean Corpuscular Hemoglobin 32.2 pg (28.0-32.0); Mean Corpuscular Hgb Conc. 33.9 g/dL (32.0-36.0); Mean Corpuscular Volume 95.1 fL (80.0-100.0); Neutrophils # (auto) 3.9 10 ^3/uL (1.6-8.6); Neutrophils % (auto) 57.9 % (37.0-80.0); Nucleated Red Blood Cells % 0.2 %; Red Blood Cells 4.32 10^6/uL (4.5-5.90); Red Cell Distribution Width 15.5 % (11.8-14.3); White Blood Cell 6.8 10^3/uL (4.4-10.8)
[2023-10-01 06:15] LABS: Alanine Aminotransferase 17 U/L (7-40); Albumin 3.7 g/dL (3.2-4.8); Alkaline Phosphatase 69 U/L (46-116); Anion Gap 7 (5-15); Aspartate Aminotransferase 21 U/L (13-40); Bilirubin, Total 0.8 mg/dL (0.2-1.0); Blood Urea Nitrogen 11 mg/dL (9-23); Calcium 8.8 mg/dL (8.7-10.4); Carbon Dioxide 27 mmol/L (20-30); Chloride 110 mmol/L (98-107); Glucose 100 mg/dL (74-106); Potassium 3.6 mmol/L (3.5-5.1); Sodium 144 mmol/L (136-145); Total Protein 5.8 g/dL (5.7-8.2)
[2023-10-01 07:35] VITALS: PULSE 54; RESP 11; O2SAT 97
[2023-10-01 09:10] LABS: Triglycerides 98 mg/dL (< 150)
[2023-10-01 09:11] LABS: LDL Cholesterol 121 mg/dL (< 100)
[2023-10-01 09:12] LABS: HDL Cholesterol 44 mg/dL (40-59)
[2023-10-01 09:13] LABS: Cholesterol 177 mg/dL (< 200)
[2023-10-01] MEDS: CARVEDILOL 3.125 MG TAB PO SCH ×3 (10:00→21:15)
[2023-10-01] MEDS: ASPirin 81 mg TAB PO SCH (10:28)
[2023-10-01] MEDS: AMIODARONE HCL 200 MG TAB PO SCH ×2 (13:07→21:14)
[2023-10-01] MEDS: SODIUM CHLOR 0.9% PF (SALINE LOCK) 10ML VIAL/SYR IV SCH ×2 (14:05→21:15)
[2023-10-01] MEDS ORDERED: SPIR25TA8 PO (19:15)
[2023-10-01] MEDS ORDERED: CARV6.2551 PO (19:15)
[2023-10-01 20:00] VITALS: PULSE 80
[2023-10-01 22:00] VITALS: BP 137/69; PULSE 61; RESP 17; TEMP 98.1; O2SAT 95
[2023-10-02 05:20] VITALS: BP 147/69; PULSE 56; RESP 16; TEMP 98; O2SAT 96
[2023-10-02] MEDS: SODIUM CHLOR 0.9% PF (SALINE LOCK) 10ML VIAL/SYR IV SCH ×2 (06:20→14:48)
[2023-10-02 09:28] VITALS: BP 149/73; PULSE 57; RESP 16; TEMP 98.3; O2SAT 93
[2023-10-02] MEDS: ASPirin 81 mg TAB PO SCH (09:45)
[2023-10-02] MEDS: AMIODARONE HCL 200 MG TAB PO SCH (09:45)
[2023-10-02] MEDS: CARVEDILOL 3.125 MG TAB PO SCH (09:46)
[2023-10-02] MEDS ORDERED: CARVEDILOL 3.125 MG TAB PO SCH (11:30)
[2023-10-02 13:00] VITALS: BP 146/75; PULSE 77; RESP 16; TEMP 98.2; O2SAT 94
[2023-10-02] MEDS ORDERED: CARVEDILOL 3.125 MG TAB PO ONE (14:30)
[2023-10-02] MEDS ORDERED: POTASSIUM CHL 10 Meq TABLET PO SCH (14:30)
[2023-10-02] MEDS ORDERED: MAGNESIUM OXIDE 400 MG TAB PO SCH (14:30)
[2023-10-02 16:07] VITALS: BP 146/75; PULSE 77; RESP 16; TEMP 98.2; O2SAT 94
== END 2023-10-02 17:43 | disposition home or self-care (01) | DRG 281 ==
LOC: ER 16:29 → TELE 23:44 → TELE-EAST 10-01 17:55
PROVIDERS: ADMIT Nurse Practitioner Family; ATTEND Nurse Practitioner Family
PROC: 4B02XTZ Measurement of Cardiac Defibrillator, External Approach (ICD-10-PCS; principal; 2023-09-30)
DX: I21.4 Non-ST elevation (NSTEMI) myocardial infarction (principal); I42.8 Other cardiomyopathies; I47.10 Supraventricular tachycardia, unspecified; I50.22 Chronic systolic (congestive) heart failure; I11.0 Hypertensive heart disease with heart failure; F10.10 Alcohol abuse, uncomplicated; F17.210 Nicotine dependence, cigarettes, uncomplicated; Z80.0 Family history of malignant neoplasm of digestive organs; Z95.810 Presence of automatic (implantable) cardiac defibrillator; Z85.038 Personal history of other malignant neoplasm of large intestine; Z88.6 Allergy status to analgesic agent
CPT/HCPCS: 36415; 71045; 80053; 80061; 81001; 83735; 83880; 84484; 85025; 85610; 85730; 87081; 93005; 96374; 96375; G0378; J2704

== ENCOUNTER 2023-11-25 07:17 | Day surgery (SDC) | payer MEDICARE, MEDICAID ==
[~2023-11-25] VITALS: Ht 170.2 cm; Wt 63.5 kg
[2023-11-25] VITALS (9 sets, daily range): BP systolic 147–173; BP diastolic 84–105; PULSE 60–77; RESP 12–14; O2SAT 93–98
[~2023-11-25 07:17] MED LIST changes: -ASCO500C49 PO; -CARV3.1240 PO; +CARV6.2551 PO; -CHOL20007 PO; -DOXY-286 PO; -LISI20TA56 PO; -METH4PAK PO; -SACU1TAB PO; +SPIR25TA8 PO; -ZINC220C10 PO
[2023-11-25] MEDS ORDERED: IOHEXOL 350 MG/ML 100ML IJ ONE (09:15)
[2023-11-25] MEDS ORDERED: IODIXANOL 320MG/ML 100ML BTL IV ONE (09:15)
[2023-11-25] MEDS ORDERED: LIDOCAINE 2%HCL (LOCAL ANESTH.) INJ 20ML MDV ONE ×2 (09:15→09:57)
[2023-11-25] MEDS ORDERED: fentaNYL CITRATE 100 MCG/2 ML VL ONE (09:27)
[2023-11-25] MEDS ORDERED: MIDAZOLAM HCL 2MG/2ML 2ml VIAL (1mg/ml) ONE (09:27)
[2023-11-25] MEDS ORDERED: ceFAZolin 1GM/50ML 50 ML IV ONE ×2 (09:54→11:00)
[2023-11-25] MEDS ORDERED: ISOPROTERENOL HCL INJECTION 1 MG in D5W 5% 250 ML IV SCH (10:30)
== END 2023-11-25 15:15 | disposition home or self-care (01) ==
LOC: CATH 07:17
PROVIDERS: ATTEND Specialist
DX: I47.19 Other supraventricular tachycardia (principal); J44.9 Chronic obstructive pulmonary disease, unspecified; Z80.0 Family history of malignant neoplasm of digestive organs; Z87.891 Personal history of nicotine dependence; Z72.89 Other problems related to lifestyle; Z95.810 Presence of automatic (implantable) cardiac defibrillator; Z98.890 Other specified postprocedural states
CPT/HCPCS: 93653; C1730; C1732; C1893; C1894; J0690; J1644; J2250; J3010; J7060; Q9967; 93620; 99152